=== PATIENT | female | born 2000 | race Caucasian/White ===

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

== ENCOUNTER 2020-06-04 22:41 | Emergency (ER) | payer OTHER ==
[~2020-06-04] VITALS: Ht 154.9 cm; Wt 68.0 kg
[2020-06-04 22:51] VITALS: BP 116/74
--- NOTE | 2020-06-04 22:51 | NUR ---
TO BED AMBULATORY
--- NOTE | 2020-06-04 23:11 | NUR ---
X-Ray at bedside.
--- NOTE | 2020-06-04 23:37 | NUR ---
19 Y/O F BIB SELF FROM HOME, PATIENT PRESENTS TO ED WITH R ANTERIOR FOREARM PAIN THAT RADIATES TO DIGITS. PT STATES SHE WAS AT WORK AND HAD HER TRUNK FALL AND CRUSH HER ARM TODAY 06/04/20 AROUND 2029. VISIBLE BRUISING, PT STATES SHE CAN NOT MOVE DIGITS. NO EDEMA PRESENT. DENIES N/V/D; SKIN IS PINK/WARM/DRY; AAOX4 WITH EVEN AND STEADY GAIT; LUNGS CLEAR BL; HR EVEN AND REGULAR; PT DENIES ANY FEVER, CP, SOB, OR COUGH AT THIS TIME; PATIENT STATES PAIN OF 10/10 AT THIS TIME; VSS; PATIENT POSITIONED FOR COMFORT; HOB ELEVATED; BEDRAILS UP X2; BED DOWN. ER MD MADE AWARE OF PT STATUS. LMP: LAST JUNE 2019. NKA. PT STATES SHE HAS HER PERIOD 3 TIMES A YEAR. PMH: HTN, ASTHMA.
[2020-06-05] MEDS ORDERED: ACETAMINOPHEN EXTRA STRENGTH 500 MG TAB PO ONE (00:45)
[2020-06-05] MEDS ORDERED: IBUPROFEN 600 MG TAB PO ONE (00:45)
[2020-06-05] MEDS ORDERED: IBUP-2213 PO (00:46)
[2020-06-05 01:14] VITALS: BP 116/74
== END 2020-06-05 01:15 | disposition home or self-care (01) ==
LOC: MED 22:41
DX: S49.91XA Unspecified injury of right shoulder and upper arm, initial encounter (principal); J45.909 Unspecified asthma, uncomplicated; I10 Essential (primary) hypertension; Z79.899 Other long term (current) drug therapy; W22.8XXA Striking against or struck by other objects, initial encounter; Y93.89 Activity, other specified; Y92.89 Other specified places as the place of occurrence of the external cause; Y99.8 Other external cause status
CPT/HCPCS: 73080; 73090; 73130; 99284

== ENCOUNTER 2020-11-04 17:02 | Emergency (ER) | payer OTHER ==
[~2020-11-04] VITALS: Ht 154.9 cm; Wt 65.8 kg
[~2020-11-04 17:02] MED LIST changes: +IBUP-2213 PO
[2020-11-04 17:37] VITALS: BP 134/89
--- NOTE | 2020-11-04 18:05 | NUR ---
DR CASIANO AT BEDSIDE EVALUATING PT
--- NOTE | 2020-11-04 18:05 | NUR ---
20 Y/O FEMALE BIB SELF FOR EPISODES OF HEMOPTYSIS/NAUSEA SINCE 11/04 WITH ABD PAIN 09/28 DULL ACHY. (-) DIARRHEA. REPORTS FEELING THESE SYMPTOMS AFTER DINNER LAST NIGHT. PMHX: PCOS, GASTRIC SLEEVE, HTN, ASTHMA. NKDA
[2020-11-04] MEDS ORDERED: KETOROLAC 30 MG/ML VIAL IVP ONE (18:10)
[2020-11-04] MEDS ORDERED: NACL 0.9% 1,000 ML IV ONE (18:10)
[2020-11-04] MEDS ORDERED: PROCHLORPERAZINE 10 MG/2 ML VIAL IVP ONE (18:10)
--- NOTE | 2020-11-04 18:43 | NUR ---
PER GALE JOSÉ TO DO A SERUM PREG TEST
--- NOTE | 2020-11-04 18:43 | NUR ---
BLOOD SPECIMENS COLLECTED AND GIVEN TO P.TECH
[2020-11-04 18:52] LABS: BASOPHILS % (AUTO) 0.4 % (0.0-2.0); EOSINOPHILS # (AUTO) 0.1 K/uL (0-0.4); EOSINOPHILS % (AUTO) 1.2 % (0.0-4.0); HEMATOCRIT 35.6 % (36-48); HEMOGLOBIN 11.4 g/dL (12.0-16.0); LYMPHOCYTES # (AUTO) 2.6 K/uL (2.5-16.5); LYMPHOCYTES % (AUTO) 41.9 % (20.5-51.1); MEAN CORPUSCULAR HEMOGLOBIN 25 pg (27-31); MEAN CORPUSCULAR HGB CONC 32 g/dL (33-37); MEAN CORPUSCULAR VOLUME 79.5 fL (80-94); MONOCYTES # (AUTO) 0.4 K/uL (0.8-1.0); MONOCYTES % (AUTO) 7.1 % (1.7-9.3); NEUTROPHILS # (AUTO) 3.1 K/uL (1.8-7.7); NEUTROPHILS % (AUTO) 49.4 % (42.2-75.2); PLATELET COUNT (AUTO) 337 K/uL (140-450); RED BLOOD CELL COUNT(AUTO) 4.49 MIL/uL (4.20-5.40); RED CELL DISTRIBUTION WIDTH 14.3 % (11.6-13.7); WHITE BLOOD COUNT (AUTO) 6.2 K/uL (4.5-11.0)
[2020-11-04 19:12] LABS: ANION GAP 10.4 (8-16); CARBON DIOXIDE 27.2 mmol/L (21-32); CREATININE 0.7 mg/dL (0.6-1.3); POTASSIUM 3.6 mmol/L (3.5-5.1); TOTAL BILIRUBIN 0.2 mg/dL (0.0-1.0)
--- NOTE | 2020-11-04 19:15 | NUR ---
Pt report given to kylie. Transfer of care at this time.
--- NOTE | 2020-11-04 19:54 | NUR ---
pt taken to xray via w.c.
--- NOTE | 2020-11-04 20:04 | NUR ---
PT RETURNED FROM XRAY VIA W.C.
--- NOTE | 2020-11-04 20:25 | NUR ---
IV removed, catheter intact and site benign. Applied folded 4x4 gauze and tape to stop bleeding.
--- NOTE | 2020-11-04 20:30 | NUR ---
Patient discharged with v/s stable. Written and verbal after care instructions given and explained. Patient verbalized understanding. Ambulatory with steady gait. All questions addressed prior to discharge. Advised to follow up with PMD.
[2020-11-04 23:43] LABS: APPEARANCE,URINE CLEAR (CLEAR); BILIRUBIN,URINE NEGATIVE (NEGATIVE); BLOOD, URINE 2+ (NEGATIVE); COLOR,URINE YELLOW (YELLOW); LEUKOCYTE ESTERASE ,URINE NEGATIVE (NEGATIVE); NITRITE, URINE NEGATIVE (NEGATIVE); PH,URINE 6.5 (5.0-9.0); UGLUCOSE NEGATIVE (NEGATIVE)
[2020-11-04 23:51] LABS: RBC,URINE 0-5 /HPF (0-5); WBC,URINE 0-5 /HPF (0-5)
== END 2020-11-04 20:30 | disposition home or self-care (01) ==
LOC: MED 17:02
DX: R51.9 Headache, unspecified (principal); Z20.822 Contact with and (suspected) exposure to COVID-19; J45.909 Unspecified asthma, uncomplicated; I10 Essential (primary) hypertension; Z79.899 Other long term (current) drug therapy
CPT/HCPCS: 36415; 74022; 80053; 81001; 84702; 85025; 87086; 87426; 96361; 96374; 96375; 99284; J0780; J1885; J7030

== ENCOUNTER 2021-03-18 12:13 | Emergency (ER) | payer OTHER ==
[~2021-03-18] VITALS: Ht 154.9 cm; Wt 63.5 kg
[2021-03-18 12:48] VITALS: BP 131/78
[2021-03-18] MEDS ORDERED: PRED20TA5 PO (14:40)
[2021-03-18] MEDS ORDERED: ACET-10509 PO (14:40)
[2021-03-18] MEDS ORDERED: ONDA-188 PO (14:40)
[2021-03-18 15:21] VITALS: BP 131/78
--- NOTE | 2021-03-18 15:21 | NUR ---
FLU AND AURELIA SWABS COLLECTED AND WALKED TO LAB.
--- NOTE | 2021-03-18 15:21 | NUR ---
NO NURSING INTERVENTIONS PROVIDED
--- NOTE | 2021-03-18 15:21 | NUR ---
Patient discharged with v/s stable. Written and verbal after care instructions ABOUT URI given and explained. Patient alert, oriented and verbalized understanding of instructions. Ambulatory with steady gait. All questions addressed prior to discharge. ID band removed. Patient advised to follow up with PMD. Rx of TYLENOL, ZOFRAN AND PREDNISONE given. Patient educated on indication of medication including possible reaction and side effects. Opportunity to ask questions provided and answered.
== END 2021-03-18 15:21 | disposition home or self-care (01) ==
LOC: MED 12:13
DX: B34.9 Viral infection, unspecified (principal); Z20.822 Contact with and (suspected) exposure to COVID-19; J45.909 Unspecified asthma, uncomplicated; I10 Essential (primary) hypertension
CPT/HCPCS: 71045; 87804; 99284

== ENCOUNTER 2021-04-25 16:32 | Emergency (ER) | payer OTHER ==
[~2021-04-25] VITALS: Ht 157.5 cm; Wt 63.5 kg
[~2021-04-25 16:32] MED LIST changes: +ACET-10509 PO; +ONDA-188 PO; +PRED20TA5 PO
[2021-04-25 16:37] VITALS: BP 128/79
--- NOTE | 2021-04-25 16:42 | NUR ---
Patient ambulated to bed 11 with steady/even gait.
--- NOTE | 2021-04-25 16:42 | NUR ---
20/F BIB SELF WITH C/O COLD SORES ON BOTTOM LIP AND INSIDE HER MOUTH SINCE THIS MORNING, DENIES TAKING ANYTHING FOR SYMPTOMS. PATIENT REPORTS 9/10, BURNING/CONSTANT, NON-RADIATING PAIN THAT WORSENS WITH MEALS. ALLEVIATES WITH ICE. NO MEDS PRIOR TO ARRIVAL. DENIES FEVER, CHILLS, N/V/D. BED LOCKED IN LOWEST POSITION, SIDE RAILS X 1. MEDHX: ASTHMA, HTN, "HIGH INSULIN" DIAGNOSED THIS WEEK MEDS: HYDROCHLOROTHIAZIDE, ALBUTEROL ALLERGIES: NKA
--- NOTE | 2021-04-25 16:47 | NUR ---
DR. ALVES IS EVALUATING PT AT BEDSIDE
[2021-04-25] MEDS ORDERED: IBUP-2213 PO (16:56)
[2021-04-25] MEDS ORDERED: DOCO1CRE TP (16:56)
--- NOTE | 2021-04-25 17:14 | NUR ---
Patient discharged with v/s stable. Written and verbal after care instructions given and explained. Patient alert, oriented and verbalized understanding of instructions. Ambulatory with steady gait. All questions addressed prior to discharge. ID band removed. Patient advised to follow up with PMD. Rx of Docosanol, Ibuprofen given. Patient educated on indication of medication including possible reaction and side effects. Opportunity to ask questions provided and answered.
== END 2021-04-25 17:14 | disposition home or self-care (01) ==
LOC: MED 16:32
DX: K13.79 Other lesions of oral mucosa (principal); J45.909 Unspecified asthma, uncomplicated; I10 Essential (primary) hypertension; Z79.899 Other long term (current) drug therapy; Z98.84 Bariatric surgery status
CPT/HCPCS: 99282

== ENCOUNTER 2021-05-04 00:04 | Emergency (ER) | payer OTHER ==
[~2021-05-04] VITALS: Ht 154.9 cm; Wt 63.5 kg
[~2021-05-04 00:04] MED LIST changes: +DOCO1CRE TP
[2021-05-04 00:17] VITALS: BP 141/70
--- NOTE | 2021-05-04 00:24 | NUR ---
pt to the lobby to a/w evaluation
--- NOTE | 2021-05-04 00:48 | NUR ---
pt ambulated to bed #12
--- NOTE | 2021-05-04 00:49 | NUR ---
covering primary RN for lunch relief. see complete assessment
[2021-05-04] MEDS ORDERED: ACETAMINOPHEN EXTRA STRENGTH 500 MG TAB PO ONE (01:25)
[2021-05-04 01:44] LABS: BASOPHILS % (AUTO) 0.4 % (0.0-2.0); EOSINOPHILS # (AUTO) 0.1 K/uL (0-0.4); EOSINOPHILS % (AUTO) 0.7 % (0.0-4.0); HEMATOCRIT 33.5 % (36-48); HEMOGLOBIN 10.8 g/dL (12.0-16.0); LYMPHOCYTES # (AUTO) 2.9 K/uL (2.5-16.5); LYMPHOCYTES % (AUTO) 31.6 % (20.5-51.1); MEAN CORPUSCULAR HEMOGLOBIN 25 pg (27-31); MEAN CORPUSCULAR HGB CONC 32 g/dL (33-37); MEAN CORPUSCULAR VOLUME 76.2 fL (80-94); MONOCYTES # (AUTO) 0.8 K/uL (0.8-1.0); MONOCYTES % (AUTO) 8.9 % (1.7-9.3); NEUTROPHILS # (AUTO) 5.4 K/uL (1.8-7.7); NEUTROPHILS % (AUTO) 58.4 % (42.2-75.2); PLATELET COUNT (AUTO) 339 K/uL (140-450); RED CELL DISTRIBUTION WIDTH 14.1 % (11.6-13.7); WHITE BLOOD COUNT (AUTO) 9.2 K/uL (4.5-11.0)
[2021-05-04 01:45] LABS: APPEARANCE,URINE CLEAR (CLEAR); BILIRUBIN,URINE NEGATIVE (NEGATIVE); BLOOD, URINE NEGATIVE (NEGATIVE); COLOR,URINE YELLOW (YELLOW); LEUKOCYTE ESTERASE ,URINE TRACE (NEGATIVE); NITRITE, URINE NEGATIVE (NEGATIVE); UGLUCOSE NEGATIVE (NEGATIVE)
[2021-05-04 02:07] LABS: RBC,URINE 0-5 /HPF (0-5)
[2021-05-04 02:08] LABS: TRICHOMONAS,URINE Few /HPF (None Seen); YEAST,URINE Rare /HPF (None Seen)
[2021-05-04 02:24] LABS: ALBUMIN 3.5 g/dL (3.4-5.0); ANION GAP 12.8 (8-16); CARBON DIOXIDE 23.9 mmol/L (21-32); CREATININE 0.6 mg/dL (0.6-1.3); POTASSIUM 3.7 mmol/L (3.5-5.1); TOTAL BILIRUBIN 0.1 mg/dL (0.0-1.0)
--- NOTE | 2021-05-04 04:01 | NUR ---
US AT BEDSIDE.
--- NOTE | 2021-05-04 04:20 | NUR ---
Female Building Supervisor accompanied female patient for Ultrasound.
--- NOTE | 2021-05-04 04:47 | NUR ---
Pelvic exam performed by with MARIA M Everett at bedside for entire examination. Patient tolerated procedure well. Patient assisted to position of comfort after examination.
--- NOTE | 2021-05-04 04:57 | NUR ---
SWABS SENT OVER TO LAB AT THIS TIME.
[2021-05-04] MEDS ORDERED: AZITHROMYCIN 250 MG TAB PO ONE (05:05)
[2021-05-04] MEDS ORDERED: cefTRIAXone 500 MG in LIDOCAINE MPF 1% 1 ML IM ONE (05:05)
[2021-05-04] MEDS ORDERED: metroNIDAZOLE 250 MG TAB PO ONE (05:10)
[2021-05-04] MEDS ORDERED: cefTRIAXone 500 MG VIAL ONE (05:22)
[2021-05-04] MEDS ORDERED: LIDOCAINE MPF 1% 5 ML ONE (05:23)
[2021-05-04] MEDS ORDERED: CEPH-588 PO (05:35)
[2021-05-04] MEDS ORDERED: metroNIDAZOLE 500 MG TAB ONE (05:47)
[2021-05-04] MEDS ORDERED: ONDANSETRON 4 MG ODT PO ONE (05:55)
[2021-05-04] MEDS ORDERED: TINI500T18 PO (06:35)
--- NOTE | 2021-05-04 06:42 | NUR ---
PATIENT CLEARED FOR DISHCARGE AT THIS TIME. ADVISED TO FOLLOW UP WITH PCP AND RETURN IF CONDITION WORSENS. NO OTHER COMPLAINTS OR CONCERNS AT THIS TIME FOLLOWING DISHCARGE TEACHING. RX SENT TO [facility]
[2021-05-04 06:43] VITALS: BP 121/84
== END 2021-05-04 06:37 | disposition home or self-care (01) ==
LOC: MED 00:04
DX: O23.41 Unspecified infection of urinary tract in pregnancy, first trimester (principal); O98.911 Unspecified maternal infectious and parasitic disease complicating pregnancy, first trimester; A59.9 Trichomoniasis, unspecified; J45.909 Unspecified asthma, uncomplicated; E11.9 Type 2 diabetes mellitus without complications; I10 Essential (primary) hypertension; Z79.899 Other long term (current) drug therapy; Z3A.01 Less than 8 weeks gestation of pregnancy
CPT/HCPCS: 36415; 76801; 80053; 81001; 81025; 83690; 84702; 85025; 87086; 87210; 96372; 99285; J0696; J2001; Q0092; Q0162

== ENCOUNTER 2021-05-22 08:27 | Emergency (ER) | payer OTHER ==
[~2021-05-22] VITALS: Ht 154.9 cm; Wt 63.5 kg
[~2021-05-22 08:27] MED LIST changes: +CEPH-588 PO; +TINI500T18 PO
[2021-05-22 08:31] VITALS: BP 120/60
--- NOTE | 2021-05-22 08:38 | NUR ---
Patient ambulated to bed 11.
--- NOTE | 2021-05-22 09:11 | NUR ---
DR. ALVES AT PT BEDSIDE FOR FURTHER EVALUATION.
[2021-05-22] MEDS ORDERED: ACETAMINOPHEN EXTRA STRENGTH 500 MG TAB PO ONE (09:25)
--- NOTE | 2021-05-22 09:30 | NUR ---
BLOOD COLLECTED AND WALKED TO LAB
--- NOTE | 2021-05-22 09:40 | NUR ---
US AT BEDSIDE
[2021-05-22 10:28] LABS: BASOPHILS % (AUTO) 0.3 % (0.0-2.0); EOSINOPHILS % (AUTO) 0.4 % (0.0-4.0); HEMATOCRIT 33.8 % (36-48); HEMOGLOBIN 11.1 g/dL (12.0-16.0); LYMPHOCYTES # (AUTO) 2.1 K/uL (2.5-16.5); LYMPHOCYTES % (AUTO) 27.2 % (20.5-51.1); MEAN CORPUSCULAR HEMOGLOBIN 25 pg (27-31); MEAN CORPUSCULAR HGB CONC 33 g/dL (33-37); MEAN CORPUSCULAR VOLUME 75.7 fL (80-94); MONOCYTES # (AUTO) 0.5 K/uL (0.8-1.0); MONOCYTES % (AUTO) 6.5 % (1.7-9.3); NEUTROPHILS % (AUTO) 65.6 % (42.2-75.2); PLATELET COUNT (AUTO) 308 K/uL (140-450); RED BLOOD CELL COUNT(AUTO) 4.47 MIL/uL (4.20-5.40); RED CELL DISTRIBUTION WIDTH 14.7 % (11.6-13.7); WHITE BLOOD COUNT (AUTO) 7.7 K/uL (4.5-11.0)
[2021-05-22 10:53] LABS: ALBUMIN 3.7 g/dL (3.4-5.0); ANION GAP 11.5 (8-16); CARBON DIOXIDE 25.2 mmol/L (21-32); CREATININE 0.5 mg/dL (0.6-1.3); POTASSIUM 3.7 mmol/L (3.5-5.1); TOTAL BILIRUBIN 0.3 mg/dL (0.0-1.0)
--- NOTE | 2021-05-22 10:57 | NUR ---
PATIENT STABLE IN BED, ALL NEEDS MET AT THIS TIME
[2021-05-22 11:09] LABS: APPEARANCE,URINE SL CLOUDY (CLEAR); BILIRUBIN,URINE NEGATIVE (NEGATIVE); BLOOD, URINE NEGATIVE (NEGATIVE); COLOR,URINE YELLOW (YELLOW); LEUKOCYTE ESTERASE ,URINE 2+ (NEGATIVE); NITRITE, URINE NEGATIVE (NEGATIVE); PH,URINE 7.5 (5.0-9.0); UGLUCOSE NEGATIVE (NEGATIVE)
--- NOTE | 2021-05-22 11:30 | NUR ---
patient stable in bed, apple juice offered
[2021-05-22 12:24] LABS: RBC,URINE 0-5 /HPF (0-5); WBC,URINE 20-60 /HPF (0-5)
[2021-05-22 12:25] LABS: CALCIUM OXALATE CRYSTALS,UR None Seen /HPF (None Seen); COARSE GRANULAR CASTS,URINE None Seen /LPF (None Seen); FINE GRANULAR CASTS,URINE None Seen /LPF (None Seen); HYALINE CASTS, URINE None Seen /LPF (None Seen); OTHER CASTS, URINE None Seen /LPF (None Seen); OTHER CRYSTALS,URINE None Seen /HPF (None Seen); RED BLOOD CELL CASTS,URINE None Seen /LPF (None Seen); TRICHOMONAS,URINE None Seen /HPF (None Seen); TRIPLE PHOSPHATE CRYSTAL,UR 0-10 /HPF (None Seen); URIC ACID CRYSTALS,URINE None Seen /HPF (None Seen); URINE AMORPHOUS URATE None Seen /HPF (None Seen); WAXY CASTS,URINE None Seen /LPF (None Seen); YEAST,URINE None Seen /HPF (None Seen)
[2021-05-22] MEDS ORDERED: NITR100C7 PO (12:29)
[2021-05-22] MEDS ORDERED: ONDA8TAB87 PO (12:29)
[2021-05-22 12:45] VITALS: BP 108/63
--- NOTE | 2021-05-22 12:45 | NUR ---
Patient discharged with v/s stable. Written and verbal after care instructions given on abd pain and UTI and explained. Patient alert, oriented and verbalized understanding of instructions. Ambulatory with steady gait. All questions addressed prior to discharge. ID band removed. Patient advised to follow up with PMD. Rx of Macrobid and zofran given.
--- NOTE | 2021-05-22 12:50 | NUR ---
The patient's care was reviewed and supervised by Suyapa Patrick RN.
== END 2021-05-22 12:45 | disposition home or self-care (01) ==
LOC: MED 08:27
DX: O23.41 Unspecified infection of urinary tract in pregnancy, first trimester (principal); O21.8 Other vomiting complicating pregnancy; J45.909 Unspecified asthma, uncomplicated; E11.9 Type 2 diabetes mellitus without complications; I10 Essential (primary) hypertension; Z3A.08 8 weeks gestation of pregnancy; Z79.899 Other long term (current) drug therapy; Z98.84 Bariatric surgery status
CPT/HCPCS: 36415; 76700; 76705; 76817; 80053; 81001; 81025; 83690; 84702; 85025; 86900; 86901; 87086; 99284; Q0092

== ENCOUNTER 2021-09-08 10:01 | Observation (INO) | payer OTHER ==
[~2021-09-08] VITALS: Ht 154.9 cm; Wt 70.8 kg
[~2021-09-08 10:01] MED LIST changes: +NITR100C7 PO; +ONDA8TAB87 PO
[2021-09-08] MEDS ORDERED: LACTATED RINGERS 1,000 ML IV SCH (10:15)
[2021-09-08] MEDS ORDERED: SODIUM FERRIC GLUCONATE 125 MG in NACL 0.9% 100 ML IV SCH (11:00)
[2021-09-08 11:05] VITALS: BP 98/55
[2021-09-08 13:04] LABS: HEMATOCRIT 26.9 % (36-48); HEMOGLOBIN 8.8 g/dL (12.0-16.0)
== END 2021-09-08 13:55 | disposition home or self-care (01) ==
LOC: MLD 10:01
PROVIDERS: ADMIT Obstetrics & Gynecology; ATTEND Obstetrics & Gynecology
DX: O99.012 Anemia complicating pregnancy, second trimester (principal); Z20.822 Contact with and (suspected) exposure to COVID-19; D50.9 Iron deficiency anemia, unspecified; O26.892 Other specified pregnancy related conditions, second trimester; R10.9 Unspecified abdominal pain; O99.612 Diseases of the digestive system complicating pregnancy, second trimester; K59.00 Constipation, unspecified; O99.512 Diseases of the respiratory system complicating pregnancy, second trimester; J45.909 Unspecified asthma, uncomplicated; Z3A.25 25 weeks gestation of pregnancy
CPT/HCPCS: 36415; 59025; 81000; 85018; 87426; 96365; 96366; G0378; G0379; J2916

== ENCOUNTER 2021-09-14 07:05 | Observation (INO) | payer OTHER ==
[~2021-09-14] VITALS: Ht 154.9 cm; Wt 70.8 kg
[2021-09-14] MEDS ORDERED: LACTATED RINGERS 1,000 ML IV SCH (07:30)
[2021-09-14] MEDS ORDERED: SODIUM FERRIC GLUCONATE 125 MG in NACL 0.9% 100 ML IV SCH (07:30)
[2021-09-14 07:49] VITALS: BP 100/59
[2021-09-27] MEDS ORDERED: PANT40EC PO ×2 (10:32→10:33)
== END 2021-09-14 11:15 | disposition home or self-care (01) ==
LOC: MLD 07:05
PROVIDERS: ADMIT Obstetrics & Gynecology; ATTEND Obstetrics & Gynecology
DX: Z34.83 Encounter for supervision of other normal pregnancy, third trimester (principal); Z3A.28 28 weeks gestation of pregnancy
CPT/HCPCS: 59025; 96361; 96365; G0378; J2916

== ENCOUNTER 2021-10-26 | Inpatient (IN) | payer OTHER ==
[~2021-10-26] VITALS: Ht 154.9 cm; Wt 80.3 kg
[~2021-10-26] MED LIST changes: +PANT40EC PO
[2021-10-26 00:10] VITALS: BP 116/83
[2021-10-26] MEDS ORDERED: PNV1TABL5 PO (01:53)
[2021-10-26] MEDS ORDERED: FERR240T12 PO (01:53)
[2021-10-26] MEDS ORDERED: ONDANSETRON 4 MG/2 ML VIAL IVP PRN (02:20)
[2021-10-26] MEDS ORDERED: MORPHINE SULFATE 5 MG/ML VIAL IVP PRN (02:20)
[2021-10-26] MEDS ORDERED: MORPHINE SULFATE 10 MG/ML VIAL ONE (03:14)
[2021-10-26 03:18] VITALS: BP 132/84
[2021-10-26] MEDS: LACTATED RINGERS 500 ML IV SCH ×5 (06:49→17:03)
[2021-10-26] MEDS ORDERED: BETAMETH ACET/BETAMETH NA PH 30 MG/5 ML VIAL IM ONE (12:44)
[2021-10-26] MEDS ORDERED: BETAMETH ACET/BETAMETH NA PH 30 MG/5 ML VIAL IM SCH (13:00)
== END 2021-10-26 19:30 | disposition home or self-care (01) | DRG 566 ==
LOC: MFCC → MLD 00:41 → MFCC 08:30 → OBSVTOIN 16:15
PROVIDERS: ADMIT Obstetrics & Gynecology; ATTEND Obstetrics & Gynecology
DX: O99.613 Diseases of the digestive system complicating pregnancy, third trimester (principal); U07.1 COVID-19; O98.813 Other maternal infectious and parasitic diseases complicating pregnancy, third trimester; O98.513 Other viral diseases complicating pregnancy, third trimester; K21.9 Gastro-esophageal reflux disease without esophagitis; B96.81 Helicobacter pylori [H. pylori] as the cause of diseases classified elsewhere; Z3A.32 32 weeks gestation of pregnancy
CPT/HCPCS: 36415; 59025; 76817; 81000; J0702; J2270; J2405; Q0092

== ENCOUNTER 2021-10-27 09:34 | Observation (INO) | payer OTHER ==
[~2021-10-27] VITALS: Ht 154.9 cm; Wt 80.3 kg
[2021-10-27] MEDS ORDERED: BETAMETH ACET/BETAMETH NA PH 30 MG/5 ML VIAL IM SCH (09:50)
[2021-10-27 10:05] VITALS: BP 97/54
== END 2021-10-27 10:45 | disposition home or self-care (01) ==
LOC: MLD 09:34 → MFCC 09:54
PROVIDERS: ADMIT Obstetrics & Gynecology; ATTEND Obstetrics & Gynecology
DX: O98.513 Other viral diseases complicating pregnancy, third trimester (principal); U07.1 COVID-19; Z3A.32 32 weeks gestation of pregnancy
CPT/HCPCS: 96372; G0378; J0702; 59025

== ENCOUNTER 2021-11-26 14:10 | Observation (INO) | payer OTHER ==
[~2021-11-26] VITALS: Ht 154.9 cm; Wt 79.4 kg
[2021-11-26] MEDS ORDERED: PNV91TAB8 PO (14:25)
[2021-11-26] MEDS ORDERED: IRON SUCROSE COMPLEX 100 MG/5 ML VIAL IVP ONE (14:25)
[2021-11-26] MEDS ORDERED: LACTATED RINGERS 1,000 ML IV SCH (14:25)
[2021-11-26] MEDS ORDERED: IRON SUCROSE COMPLEX 200 MG in NACL 0.9% 100 ML IVP SCH (15:00)
[2021-11-26 15:40] VITALS: BP 109/65
== END 2021-11-26 16:50 | disposition home or self-care (01) ==
LOC: MLD 14:10
PROVIDERS: ADMIT Obstetrics & Gynecology; ATTEND Obstetrics & Gynecology
DX: O99.013 Anemia complicating pregnancy, third trimester (principal); D64.9 Anemia, unspecified; Z3A.36 36 weeks gestation of pregnancy
CPT/HCPCS: 96365; G0378; G0379; J1756; 59025; 81000

== ENCOUNTER 2022-12-13 07:48 | Emergency (ER) | payer OTHER ==
[~2022-12-13] VITALS: Ht 157.5 cm; Wt 74.4 kg
[~2022-12-13 07:48] MED LIST changes: -ACET-10509 PO; -ACET-2619 PO; -CEPH-588 PO; -DOCO1CRE TP; -IBUP-2213 PO; -NITR100C7 PO; -ONDA-188 PO; -ONDA8TAB87 PO; -PANT40EC PO; +PNV91TAB8 PO; -PRED20TA5 PO; -TINI500T18 PO
[2022-12-13 08:12] VITALS: BP 101/62; PULSE 74; RESP 18; TEMP 98.7; O2SAT 97
[2022-12-13] MEDS ORDERED: ACET-2619 PO (08:17)
[2022-12-13 08:32] VITALS: BP 101/62; PULSE 74; RESP 18; TEMP 98.7; O2SAT 97
== END 2022-12-13 08:32 | disposition home or self-care (01) ==
LOC: MED 07:48
DX: S61.337A Puncture wound without foreign body of left little finger with damage to nail, initial encounter (principal); J45.909 Unspecified asthma, uncomplicated; I10 Essential (primary) hypertension; E11.9 Type 2 diabetes mellitus without complications; Z79.4 Long term (current) use of insulin; Z79.899 Other long term (current) drug therapy; X58.XXXA Exposure to other specified factors, initial encounter; Y93.89 Activity, other specified; Y92.89 Other specified places as the place of occurrence of the external cause; Y99.8 Other external cause status
CPT/HCPCS: 99282

== ENCOUNTER 2023-04-17 21:07 | Emergency (ER) | payer OTHER ==
[~2023-04-17] VITALS: Ht 154.9 cm; Wt 65.8 kg
[~2023-04-17 21:07] MED LIST changes: +ACET-2619 PO
[2023-04-17 21:14] VITALS: BP 130/93; PULSE 102; RESP 17; TEMP 98; O2SAT 98
[2023-04-17 22:21] LABS: BASOPHILS # (AUTO) 0.1 K/uL (0.00-0.22); BASOPHILS % (AUTO) 0.8 % (0.0-2.0); EOSINOPHILS % (AUTO) 0.3 % (0.0-4.0); HEMATOCRIT 33.6 % (36-48); HEMOGLOBIN 10.8 g/dL (12.0-16.0); LYMPHOCYTES # (AUTO) 2.5 K/uL (2.5-16.5); LYMPHOCYTES % (AUTO) 29.4 % (20.5-51.1); MEAN CORPUSCULAR HEMOGLOBIN 24 pg (27-31); MEAN CORPUSCULAR HGB CONC 32 g/dL (33-37); MEAN CORPUSCULAR VOLUME 73.6 fL (80-94); MONOCYTES # (AUTO) 1.1 K/uL (0.8-1.0); NEUTROPHILS # (AUTO) 4.7 K/uL (1.8-7.7); NEUTROPHILS % (AUTO) 56.5 % (42.2-75.2); PLATELET COUNT (AUTO) 299 K/uL (140-450); RED BLOOD CELL COUNT(AUTO) 4.57 MIL/uL (4.20-5.40); RED CELL DISTRIBUTION WIDTH 14.8 % (11.6-13.7); WHITE BLOOD COUNT (AUTO) 8.4 K/uL (4.8-10.8)
[2023-04-17 22:31] LABS: ANION GAP 12.4 (8-16); CALCIUM 8.8 mg/dL (8.5-10.1); CARBON DIOXIDE 25.8 mmol/L (21-32); CREATININE 0.7 mg/dL (0.6-1.3); POTASSIUM 3.2 mmol/L (3.5-5.1)
[2023-04-17 22:38] LABS: ALBUMIN 3.6 g/dL (3.4-5.0); BILIRUBIN,DIRECT 0.1 mg/dL (0.0-0.3); TOTAL BILIRUBIN 0.2 mg/dL (0.0-1.0); TOTAL PROTEIN, SERUM 9.2 g/dL (6.4-8.2)
[2023-04-17 22:46] VITALS: O2SAT 98
[2023-04-17] MEDS ORDERED: PANTOPRAZOLE 40 MG INJ VIAL IVP ONE (23:20)
[2023-04-17] MEDS ORDERED: NACL 0.9% 1,000 ML IV ONE (23:20)
[2023-04-17] MEDS ORDERED: ONDANSETRON 4 MG/2 ML VIAL IVP ONE (23:20)
[2023-04-17 23:46] LABS: INR 1.11 (0.8-1.2); PARTIAL THROMBOPLASTIN TIME 29.2 secs (22-35.6); PROTHROMBIN TIME 11.5 secs (10.8-13.4)
[2023-04-17] MEDS ORDERED: WATER STERILE 10 ML MC ONE (23:56)
[2023-04-18 01:27] VITALS: O2SAT 98
[2023-04-18 04:09] VITALS: O2SAT 98
[2023-04-18 04:30] VITALS: BP 121/72; PULSE 105; RESP 16; O2SAT 98
[2023-04-18 04:36] LABS: APPEARANCE,URINE CLEAR (CLEAR); BILIRUBIN,URINE NEGATIVE (NEGATIVE); BLOOD, URINE NEGATIVE (NEGATIVE); COLOR,URINE YELLOW (YELLOW); LEUKOCYTE ESTERASE ,URINE NEGATIVE (NEGATIVE); NITRITE, URINE NEGATIVE (NEGATIVE); PROTEIN,URINE TRACE (NEGATIVE); UGLUCOSE NEGATIVE (NEGATIVE); UROBILINOGEN,URINE 0.2 EU/dL (0.2 - 1)
[2023-04-18 04:47] LABS: AMPHETAMINE, URINE NEGATIVE ng/ml (NEG <=1000); BARBITURATE, URINE NEGATIVE ng/ml (NEG <=200); BENZODIAZEPINE, URINE NEGATIVE ng/mL (NEG <=200); CANNABINOID, URINE NEGATIVE ng/mL (NEG <=50); COCAINE, URINE NEGATIVE ng/mL (NEG <=300); OPIATE, URINE NEGATIVE ng/mL (NEG <=2000); PHENCYCLIDINE SCREEN,URINE NEGATIVE ng/mL (NEG <=25)
[2023-04-18 04:48] LABS: BACTERIA,URINE OCCASSIONAL /HPF (None Seen); MUCUS,URINE 1+ /LPF (None Seen); RBC,URINE NONE SEEN /HPF (0-5); SQUAMOUS EPITHELIAL CELL,UR 4-10 (MOD) /LPF (0-3 (FEW)); WBC,URINE 0-5 /HPF (0-5)
== END 2023-04-18 06:33 | disposition left against medical advice (07) ==
LOC: MED 21:07
DX: R07.89 Other chest pain (principal); R53.1 Weakness; E87.6 Hypokalemia; D64.9 Anemia, unspecified; R00.0 Tachycardia, unspecified; J45.909 Unspecified asthma, uncomplicated; E11.9 Type 2 diabetes mellitus without complications; I10 Essential (primary) hypertension; Z98.84 Bariatric surgery status; Z79.899 Other long term (current) drug therapy
CPT/HCPCS: 36415; 70450; 70496; 70498; 71045; 80048; 80076; 80305; 81001; 81025; 83690; 84484; 85025; 85610; 85730; 93005; 96361; 96374; 96375; 99285; C9113; J2405; J7030; Q0092; Q9967

== ENCOUNTER 2023-06-04 09:10 | Day surgery (SDC) | payer OTHER ==
[~2023-06-04] VITALS: Ht 152.4 cm; Wt 65.8 kg
[~2023-06-04 09:10] MED LIST changes: -PNV91TAB8 PO
[2023-06-04] MEDS ORDERED: fentaNYL citrate 0.05 MG/ML VIAL ONE (09:54)
[2023-06-04] MEDS ORDERED: MIDAZOLAM 5 MG/5 ML VIAL ONE (09:54)
[2023-06-04] MEDS ORDERED: MIDAZOLAM 2 MG/2 ML VIAL IVP ONE (12:45)
== END 2023-06-04 12:30 | disposition home or self-care (01) ==
LOC: MDS 09:10 → MMU 09:13 → MDS 12:30
PROVIDERS: ATTEND Internal Medicine Gastroenterology
DX: K92.0 Hematemesis (principal); R10.13 Epigastric pain; D64.9 Anemia, unspecified; I10 Essential (primary) hypertension; J45.909 Unspecified asthma, uncomplicated; E11.9 Type 2 diabetes mellitus without complications; Z98.891 History of uterine scar from previous surgery; Z79.899 Other long term (current) drug therapy; Z98.890 Other specified postprocedural states
CPT/HCPCS: 43235; J2250; J3010

== ENCOUNTER 2023-08-24 19:07 | Emergency (ER) | payer OTHER ==
[~2023-08-24] VITALS: Ht 154.9 cm; Wt 59.0 kg
[2023-08-24 19:34] VITALS: BP 130/87; PULSE 84; RESP 16; TEMP 97.4; O2SAT 100
[2023-08-24 20:07] LABS: APPEARANCE,URINE CLEAR (CLEAR); BILIRUBIN,URINE NEGATIVE (NEGATIVE); BLOOD, URINE NEGATIVE (NEGATIVE); COLOR,URINE YELLOW (YELLOW); LEUKOCYTE ESTERASE ,URINE NEGATIVE (NEGATIVE); NITRITE, URINE NEGATIVE (NEGATIVE); PROTEIN,URINE NEGATIVE (NEGATIVE); UGLUCOSE NEGATIVE (NEGATIVE); UROBILINOGEN,URINE 0.2 EU/dL (0.2 - 1)
[2023-08-24 20:27] LABS: BASOPHILS % (AUTO) 0.8 % (0.0-2.0); EOSINOPHILS # (AUTO) 0.2 K/uL (0-0.4); EOSINOPHILS % (AUTO) 4.1 % (0.0-4.0); HEMATOCRIT 33.6 % (36-48); HEMOGLOBIN 10.9 g/dL (12.0-16.0); LYMPHOCYTES # (AUTO) 2.2 K/uL (2.5-16.5); LYMPHOCYTES % (AUTO) 37.9 % (20.5-51.1); MEAN CORPUSCULAR HEMOGLOBIN 24 pg (27-31); MEAN CORPUSCULAR HGB CONC 33 g/dL (33-37); MEAN CORPUSCULAR VOLUME 73.7 fL (80-94); MONOCYTES # (AUTO) 0.5 K/uL (0.8-1.0); MONOCYTES % (AUTO) 8.9 % (1.7-9.3); NEUTROPHILS # (AUTO) 2.8 K/uL (1.8-7.7); NEUTROPHILS % (AUTO) 48.3 % (42.2-75.2); PLATELET COUNT (AUTO) 347 K/uL (140-450); RED BLOOD CELL COUNT(AUTO) 4.56 MIL/uL (4.20-5.40); RED CELL DISTRIBUTION WIDTH 16.6 % (11.6-13.7); WHITE BLOOD COUNT (AUTO) 5.8 K/uL (4.8-10.8)
[2023-08-24 20:40] LABS: ANION GAP 13.6 (8-16); CARBON DIOXIDE 26.6 mmol/L (21-32); CREATININE 0.6 mg/dL (0.6-1.3); POTASSIUM 4.2 mmol/L (3.5-5.1)
[2023-08-24 20:45] LABS: ALBUMIN 3.8 g/dL (3.4-5.0); BILIRUBIN,DIRECT 0.1 mg/dL (0.0-0.3); TOTAL BILIRUBIN 0.3 mg/dL (0.0-1.0); TOTAL PROTEIN, SERUM 7.9 g/dL (6.4-8.2)
[2023-08-24 21:28] VITALS: O2SAT 98
[2023-08-24] MEDS: KETOROLAC 30 MG/ML VIAL IM ONE (22:16)
[2023-08-24] MEDS: ACETAMINOPHEN 325 MG TAB PO ONE (22:17)
[2023-08-25 00:10] VITALS: O2SAT 98
[2023-08-25 00:12] VITALS: BP 102/66; PULSE 70; RESP 12
[2023-08-25 01:00] VITALS: O2SAT 99
[2023-08-25] MEDS ORDERED: ONDA-188 SL (01:24)
== END 2023-08-25 01:32 | disposition left against medical advice (07) ==
LOC: MED 19:07
DX: R10.30 Lower abdominal pain, unspecified (principal); R10.2 Pelvic and perineal pain; R31.9 Hematuria, unspecified; J45.909 Unspecified asthma, uncomplicated; I10 Essential (primary) hypertension; E11.9 Type 2 diabetes mellitus without complications; Z79.4 Long term (current) use of insulin; Z79.899 Other long term (current) drug therapy
CPT/HCPCS: 36415; 74176; 76856; 80048; 80076; 81003; 81025; 83690; 84703; 85025; 93976; 96372; 99285; J1885